=== PATIENT | male | born 1995 | race Caucasian/White ===

== ENCOUNTER 2019-05-13 01:33 | Emergency (ER) | payer OTHER ==
[~2019-05-13] VITALS: Ht 190.5 cm; Wt 98.4 kg
[~2019-05-13 01:33] MED LIST: IBUPROFEN 600600 M1 PO; NORCO 5-325 TA1 EACH PO
[2019-05-13] MEDS ORDERED: AUGMENTIN 875-1 EACH PO (03:24)
[2019-05-13 03:42] VITALS: BP 135/52
== END 2019-05-13 03:36 | disposition left against medical advice (07) ==
LOC: ER 01:33
DX: S51.851A Open bite of right forearm, initial encounter (principal); F17.210 Nicotine dependence, cigarettes, uncomplicated; W54.0XXA Bitten by dog, initial encounter; Y93.89 Activity, other specified; Y92.89 Other specified places as the place of occurrence of the external cause; Y99.8 Other external cause status